=== PATIENT | female | born 1955 | race Caucasian/White ===

== ENCOUNTER 2017-05-06 12:54 | Inpatient (IN) | payer MEDICARE, BC ==
[~2017-05-06] VITALS: Ht 162.6 cm; Wt 72.6 kg
[~2017-05-06 12:54] MED LIST: ACET1TAB14 PO; AMIT10TA6 PO; ATOR40TA PO; Carisoprodol PO; DILT180C66 PO; DILT180T11 PO; HYDR25TA4 PO; HYDROCHLOROTHIAZIDE PO; LIDOCAINE 5% OINT TOP; NATE60TA PO; POTA10CA43 PO; SOMA PO; XANAX PO
[2017-05-06] MEDS ORDERED: PANTOPRAZOLE SODIUM 40 MG VIAL IV ONE (14:15)
[2017-05-06] MEDS ORDERED: ONDANSETRON IV *ER 4 MG/2 ML VIAL IV ONE (14:15)
[2017-05-06] MEDS ORDERED: IV NORMAL SALINE 500 ML IV ONE ×2 (14:15→14:45)
[2017-05-06 14:26] LABS: BASOPHILS # (AUTO) 0.2 K/uL (0.0-8.0); HEMATOCRIT 46.2 % (37-47); HEMOGLOBIN 15.2 G/DL (12.0-16.0); LYMPHOCYTES # (AUTO) 1.5 K/UL (0.8-4.8); LYMPHOCYTES % (AUTO) 9.5 % (20.5-51.5); MEAN CORPUSCULAR HEMOGLOBIN 26.5 UUG (27.0-31.0); MEAN CORPUSCULAR HGB CONC 33 g/dL (32.0-37.0); MEAN CORPUSCULAR VOLUME 80.8 FL (81.0-99.0); MONOCYTES # (AUTO) 0.2 K/UL (0.1-1.30); MONOCYTES % (AUTO) 1.3 % (0.0-11.0); NEUTROPHILS % (AUTO) 88.2 % (38.5-71.5); PLATELET COUNT (AUTO) 415 K/UL (150-450); RED BLOOD CELL COUNT(AUTO) 5.72 MIL/UL (4.2-5.4); WHITE BLOOD COUNT (AUTO) 15.9 K/UL (4.0-11.2)
[2017-05-06 14:31] LABS: CREATININE 1.1 mg/dL (0.6-1.3); POTASSIUM 3.1 mmol/L (3.5-5.1)
[2017-05-06] MEDS ORDERED: PANTOPRAZOLE SODIUM 40 MG VIAL ONE (14:32)
[2017-05-06] MEDS ORDERED: ONDANSETRON 4 MG/2 ML VIAL ONE (14:33)
[2017-05-06 14:37] LABS: BILIRUBIN,TOTAL 0.7 mg/dL (0.2-1.0); TOTAL PROTEIN, SERUM 8.7 g/dL (6.4-8.2)
[2017-05-06] MEDS ORDERED: INSULIN REGULAR, HUMAN 1,000 UNITS/10 ML VIAL IV ONE (14:45)
[2017-05-06] MEDS ORDERED: INSULIN REGULAR, HUMAN 300 UNIT/3 ML VIAL ONE ×2 (14:59→15:02)
[2017-05-06 15:00] LABS: *BLOOD, URINE 2+ (NEGATIVE); *CLARITY,URINE SLIGHTLY CLOUDY (CLEAR); *COLOR,URINE YELLOW (YELLOW); *KETONES,URINE 4+ (NEGATIVE); *PROTEIN,URINE 1+ (NEGATIVE); *UROBILINOGEN,URINE 0.2 E.U./dl (NORMAL); LEUKOCYTE ESTERASE ,URINE TRACE (NEGATIVE); NITRITE, URINE NEGATIVE (NEGATIVE)
--- NOTE | 2017-05-06 15:07 | NUR ---
Pt was not aable to keep blood glucose under control, was at her PCP office who sent her here for admission. c/o dizziness, n/v, sciatic pain bilateral (chronic). 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
[2017-05-06 15:15] LABS: *BILIRUBIN,URIN NEGATIVE (NEGATIVE); UGLUCOSE 2+ (NEGATIVE)
[2017-05-06] MEDS ORDERED: POTASSIUM CHLORIDE 20 MEQ TAB.PRT.SR PO ONE (15:15)
[2017-05-06 15:20] LABS: BACTERIA,URINE FEW /HPF (NONE SEEN); SQUAMOUS EPITHELIAL CELL,UR MODERATE /HPF (NONE SEEN); WBC,URINE 20-50 /HPF (0-3)
--- NOTE | 2017-05-06 15:39 | NUR ---
pt vomited the k-dur tabs, refused to attempt taking others. Also, does not wish to give urine sample. aware.
[2017-05-06] MEDS ORDERED: POTASSIUM CHLORIDE 20 MEQ TAB.PRT.SR ONE (15:43)
[2017-05-06] MEDS ORDERED: POTASSIUM CHLORIDE 50 ML ONE (16:19)
[2017-05-06] MEDS: POTASSIUM CHLORIDE 50 ML IV SCH ×4 (16:22→19:01)
--- NOTE | 2017-05-06 16:22 | NUR ---
Pt c/o CP -- pressure, MD notified, EKG repeated, given to
--- NOTE | 2017-05-06 16:27 | NUR ---
Called to give report, Paz states sh wcb in 5 minutes
[2017-05-06] MEDS ORDERED: POTASSIUM CHLORIDE 150 ML ONE (16:40)
[2017-05-06 17:20] VITALS: BP 163/75
--- NOTE | 2017-05-06 17:20 | NUR ---
PATIENT RECEIVED FROM THE ER 1720 REPORT RECEIVED BY ODILIA MOREL. NO S/S OF DISTRESS NOTED. C/O OF NAUSEA, EMESIS 100CC YELLOWISH BROWN. SOCIAL INSURANCE ADVISER ON PLACE SR. INFUSING K AT THE MOMENT. ALL ADMISSIONS WERE TAKEN AND CHARTED. PICTURES WERE TAKEN FROM BOTH LEGS. DR. CORDERO NOTIFIED ABOUT ADMISSION, ORDERS WERE PLACED. BS IS TRENDING DOWN. ATIVAN IV WAS GIVEN TO ANXIETY. PATIENT CANT STILL TOLERATE NOTHING BY MOUTH, WILL KEEP HER NPO FOR SAFETY. ICE CHIPS WERE PROVIDED. REPORT WAS GIVEN TO ODILIA JEONG. SAFETY AND COMFORT PROVIDED BY STAFF.
[2017-05-06] MEDS ORDERED: Z GUARD REMEDY PASTE 57 GM TUBE TOP PRN (18:00)
[2017-05-06] MEDS ORDERED: DEXTROSE 50% 50 ML DISP.SYRIN IV PRN (18:00)
[2017-05-06] MEDS ORDERED: LIDOCAINE 5% OINT 35.44 GM TUBE TOP PRN (18:00)
[2017-05-06] MEDS ORDERED: ALPRAZOLAM 0.5 MG TABLET PO PRN (18:00)
[2017-05-06] MEDS: LORAZEPAM 2 MG/1 ML VIAL IV PRN (19:02)
--- NOTE | 2017-05-06 19:30 | NUR ---
RESTING IN BED COMFORTABLY. NO COMPLAINTS OF NAUSEA AND VOMITING AT THIS TIME. ABLE TO MAKE NEEDS KNOWN. NEEDS ATTENDED. CALL LIGHT WITHIN REACH. WILL CONTINUE TO MONITOR
[2017-05-06 20:00] VITALS: BP 163/83
[2017-05-06] MEDS: ATORVASTATIN 40 MG TABLET PO SCH (20:05)
[2017-05-06] MEDS: BLOOD SUGAR DIAGNOSTIC 1 EACH STRIP VI SCH (20:05)
[2017-05-06] MEDS: INSULIN REGULAR, HUMAN 300 UNITS/3 ML VIAL SQ PRN (20:07)
[2017-05-06] MEDS: ACETAMINOPHEN/CODEINE 300-60 MG TABLET PO PRN (20:19)
[2017-05-07] VITALS: BP 141/70
[2017-05-07] MEDS ORDERED: ONDANSETRON 4 MG/2 ML VIAL IV PRN (03:45)
[2017-05-07] MEDS: ACETAMINOPHEN/CODEINE 300-60 MG TABLET PO PRN ×3 (03:53→20:35)
[2017-05-07] MEDS: ONDANSETRON 4 MG/2 ML VIAL IV PRN ×3 (03:53→19:10)
[2017-05-07 04:00] VITALS: BP 136/65
[2017-05-07] MEDS ORDERED: ONDANSETRON 4 MG/2 ML VIAL ONE (04:00)
--- NOTE | 2017-05-07 05:59 | NUR ---
SLEPT INTERMITTENTLY DURING THE SHIFT. NO ACUTE DISTRESS NOTED. ALL DUE MEDS GIVEN ORDERED. STILL WEAK BUT ABLE TO AMBULATE USING WITH CANE. NEEDS ATTENDED. CALL LIGHT WITHIN REACH
[2017-05-07] MEDS: CARISOPRODOL 350 MG TABLET PO PRN ×2 (06:49→11:59)
[2017-05-07] MEDS: BLOOD SUGAR DIAGNOSTIC 1 EACH STRIP VI SCH ×4 (06:50→20:39)
[2017-05-07 07:50] LABS: BILIRUBIN,TOTAL 0.7 mg/dL (0.2-1.0); POTASSIUM 3.8 mmol/L (3.5-5.1)
[2017-05-07 08:09] LABS: BASOPHILS % (AUTO) 0.2 % (0.0-2.0); EOSINOPHILS # (AUTO) 0.1 K/uL (0.0-0.7); EOSINOPHILS % (AUTO) 0.7 % (0.0-7.0); HEMOGLOBIN 13.1 G/DL (12.0-16.0); LYMPHOCYTES % (AUTO) 14.6 % (20.5-51.5); MEAN CORPUSCULAR HEMOGLOBIN 26.8 UUG (27.0-31.0); MEAN CORPUSCULAR HGB CONC 33 g/dL (32.0-37.0); MEAN CORPUSCULAR VOLUME 80.4 FL (81.0-99.0); MONOCYTES # (AUTO) 0.7 K/UL (0.1-1.30); MONOCYTES % (AUTO) 4.9 % (0.0-11.0); NEUTROPHILS % (AUTO) 79.6 % (38.5-71.5); PLATELET COUNT (AUTO) 350 K/UL (150-450); WHITE BLOOD COUNT (AUTO) 13.8 K/UL (4.0-11.2)
[2017-05-07 08:12] LABS: THYROID STIMULATING HORMONE 1.157 mIU/mL (0.358-3.740)
[2017-05-07 08:20] LABS: HEMATOCRIT 39.3 % (37-47); RED BLOOD CELL COUNT(AUTO) 4.89 MIL/UL (4.2-5.4)
[2017-05-07] MEDS: INSULIN REGULAR, HUMAN 300 UNIT/3 ML VIAL SQ PRN ×3 (08:31→17:03)
[2017-05-07] MEDS: NATEGLINIDE 60 MG TABLET PO SCH (08:33)
[2017-05-07] MEDS: AMITRIPTYLINE HCL 10 MG TABLET PO SCH ×2 (09:42→17:02)
[2017-05-07] MEDS: LISINOPRIL 10 MG TABLET PO SCH (09:43)
[2017-05-07] MEDS: DILTIAZEM HCL CD 180 MG CAP.SR.24H PO SCH (09:43)
[2017-05-07] MEDS: HYDROCHLOROTHIAZIDE 25 MG TABLET PO SCH (09:44)
[2017-05-07] MEDS: POTASSIUM CHLORIDE 10 MEQ CAPSULE.SA PO SCH (09:44)
[2017-05-07 11:01] VITALS: BP 139/67
[2017-05-07 15:29] VITALS: BP 122/55
[2017-05-07] MEDS: CEFTRIAXONE 1 G in IV DEXTROSE 5% 50 ML IV SCH (17:02)
[2017-05-07 20:00] VITALS: BP 131/66
--- NOTE | 2017-05-07 20:00 | NUR ---
PT RECEIVED SITTING UP IN BED, NO ACUTE DISTRESS NOTED. PT IS AOX4 PLEASANT UPON APPROACH. HEP LOCK IN RIGHT ARM, INTACT. REPORTS NAUSEA SUBSIDING. BED IN LOW AND LOCKED POSITION. CALL LIGHT WITHIN REACH.
[2017-05-07] MEDS: ATORVASTATIN 40 MG TABLET PO SCH (20:33)
[2017-05-07] MEDS: INSULIN REGULAR, HUMAN 300 UNITS/3 ML VIAL SQ PRN (20:47)
--- NOTE | 2017-05-07 21:00 | NUR ---
FINGERSTICK AT BEDTIME WAS 321MG/DL, GIVEN 8 UNITS SLIDING SCALE COVERAGE. NO S/S HYPO/HYPERGLYCEMIA NOTED. PT GIVEN TYLENOL #4 FOR ABDOMINAL PAIN. SAFETY MEASURES MAINTAINED.
[2017-05-08] MEDS: CARISOPRODOL 350 MG TABLET PO PRN ×2 (00:52→14:16)
--- NOTE | 2017-05-08 02:54 | NUR ---
PT SLEEPING INTERMITTENTLY, NO ACUTE DISTRESS NOTED. WILL CONTINUE TO MONITOR FOR SAFETY.
[2017-05-08 04:00] VITALS: BP 131/73
[2017-05-08] MEDS: BLOOD SUGAR DIAGNOSTIC 1 EACH STRIP VI SCH ×4 (06:34→21:01)
--- NOTE | 2017-05-08 06:49 | NUR ---
PT FINGERSTICK THIS AM 295, NO S/S HYPERGLYCEMIA NOTED. NO ACUTE DISTRESS NOTED. SAFETY MEASURES PROVIDED.
[2017-05-08] MEDS: NATEGLINIDE 60 MG TABLET PO SCH (07:51)
[2017-05-08] MEDS: INSULIN REGULAR, HUMAN 300 UNIT/3 ML VIAL SQ PRN ×4 (07:53→21:05)
[2017-05-08] MEDS: LORAZEPAM 2 MG/1 ML VIAL IV PRN (08:04)
[2017-05-08] MEDS: AMITRIPTYLINE HCL 10 MG TABLET PO SCH ×2 (09:27→16:58)
[2017-05-08] MEDS: DILTIAZEM HCL CD 180 MG CAP.SR.24H PO SCH (09:27)
[2017-05-08] MEDS: HYDROCHLOROTHIAZIDE 25 MG TABLET PO SCH (09:28)
[2017-05-08] MEDS: POTASSIUM CHLORIDE 10 MEQ CAPSULE.SA PO SCH (09:28)
[2017-05-08] MEDS: LISINOPRIL 10 MG TABLET PO SCH (09:28)
[2017-05-08] MEDS: ONDANSETRON 4 MG/2 ML VIAL IV PRN ×2 (09:32→18:15)
[2017-05-08 11:05] VITALS: BP 147/80
[2017-05-08 12:13] LABS: BASOPHILS # (AUTO) 0.1 K/uL (0.0-8.0); BASOPHILS % (AUTO) 0.4 % (0.0-2.0); EOSINOPHILS # (AUTO) 0.1 K/uL (0.0-0.7); EOSINOPHILS % (AUTO) 1.1 % (0.0-7.0); HEMOGLOBIN 14.6 G/DL (12.0-16.0); LYMPHOCYTES # (AUTO) 2.1 K/UL (0.8-4.8); LYMPHOCYTES % (AUTO) 16.7 % (20.5-51.5); MEAN CORPUSCULAR HEMOGLOBIN 26.9 UUG (27.0-31.0); MEAN CORPUSCULAR HGB CONC 34 g/dL (32.0-37.0); MEAN CORPUSCULAR VOLUME 80.1 FL (81.0-99.0); MONOCYTES # (AUTO) 0.7 K/UL (0.1-1.30); MONOCYTES % (AUTO) 5.3 % (0.0-11.0); NEUTROPHILS # (AUTO) 9.8 K/UL (1.8-8.9); NEUTROPHILS % (AUTO) 76.5 % (38.5-71.5); PLATELET COUNT (AUTO) 364 K/UL (150-450); WHITE BLOOD COUNT (AUTO) 12.8 K/UL (4.0-11.2)
[2017-05-08 12:20] LABS: BILIRUBIN,TOTAL 0.7 mg/dL (0.2-1.0); CREATININE 1.1 mg/dL (0.6-1.3); MAGNESIUM 1.8 mg/dL (1.8-2.4); PHOSPHOROUS 2.6 mg/dL (2.5-4.9); TOTAL PROTEIN, SERUM 7.5 g/dL (6.4-8.2)
[2017-05-08 12:24] LABS: POTASSIUM 2.5 mmol/L (3.5-5.1)
[2017-05-08 12:26] LABS: HEMATOCRIT 43.3 % (37-47); RED BLOOD CELL COUNT(AUTO) 5.41 MIL/UL (4.2-5.4)
[2017-05-08] MEDS: ACETAMINOPHEN/CODEINE 300-60 MG TABLET PO PRN (14:10)
[2017-05-08 15:59] VITALS: BP 138/86
[2017-05-08] MEDS: CEFTRIAXONE 1 G in IV DEXTROSE 5% 50 ML IV SCH (16:00)
[2017-05-08] MEDS: POTASSIUM CHLORIDE 20 MEQ TAB.PRT.SR PO SCH ×2 (16:53→20:23)
--- NOTE | 2017-05-08 19:50 | NUR ---
PT RECEIVED SITTIN UP IN BED, NO ACUTE DISTRESS NOTED. PT OBSERVED TO BE INTERMITTENTLY CONFUSED/DISORIENTED, OBSERVED WALKING OUT OF ROOM WITH BED PAD, STATING 'I'M LOOKING FOR MY SHOES", REDIRECTION PROVIDED. PT MAKES NON SENSICAL STATEMENTS AT TIMES. 1:1 SITTER ORDERED FOR PT BY . HEP LOCK IN RIGHT FOREARM INTACT. BED IN LOW AND LOCKED POSITION, CALL LIGHT WITHIN REACH.
[2017-05-08 20:00] VITALS: BP 134/70
[2017-05-08] MEDS: ATORVASTATIN 40 MG TABLET PO SCH (20:23)
--- NOTE | 2017-05-08 22:00 | NUR ---
PT COMPLIANT WITH MEDICATIONS AT BEDTIME. XANAX GIVEN PRN NEEDED FOR ANXIETY OBSERVED. FINGERSTICK AT BEDTIME 256, SLIDING SCALE COVERAGE GIVEN. NO S/S HYPOKALEMIA NOTED. NO PHYSICAL DISCOMFORT NOTED AT THIS TIME.
--- NOTE | 2017-05-09 02:00 | NUR ---
OBSERVED RESTING COMFORTABLE AT THIS TIME. 1:1 SITTER AT BEDSIDE.
[2017-05-09] MEDS: CARISOPRODOL 350 MG TABLET PO PRN ×2 (04:07→12:34)
--- NOTE | 2017-05-09 04:23 | NUR ---
PT AWAKE IN BED, GIVEN SOMA PRN REQUESTED. NO ACUTE DISTRESS NOTED. SAFETY MEASURES MAINTAINED.
[2017-05-09] MEDS: ACETAMINOPHEN/CODEINE 300-60 MG TABLET PO PRN (06:28)
[2017-05-09] MEDS: NATEGLINIDE 60 MG TABLET PO SCH (06:44)
[2017-05-09] MEDS: BLOOD SUGAR DIAGNOSTIC 1 EACH STRIP VI SCH ×2 (06:44→11:03)
[2017-05-09 07:12] LABS: BASOPHILS % (AUTO) 0.4 % (0.0-2.0); EOSINOPHILS # (AUTO) 0.1 K/uL (0.0-0.7); EOSINOPHILS % (AUTO) 0.7 % (0.0-7.0); HEMATOCRIT 43.1 % (37-47); HEMOGLOBIN 14.4 G/DL (12.0-16.0); LYMPHOCYTES # (AUTO) 2.1 K/UL (0.8-4.8); LYMPHOCYTES % (AUTO) 23.9 % (20.5-51.5); MEAN CORPUSCULAR HEMOGLOBIN 26.7 UUG (27.0-31.0); MEAN CORPUSCULAR HGB CONC 34 g/dL (32.0-37.0); MEAN CORPUSCULAR VOLUME 79.7 FL (81.0-99.0); MONOCYTES # (AUTO) 0.5 K/UL (0.1-1.30); NEUTROPHILS # (AUTO) 6.1 K/UL (1.8-8.9); PLATELET COUNT (AUTO) 332 K/UL (150-450)
[2017-05-09 07:19] LABS: WHITE BLOOD COUNT (AUTO) 8.8 K/UL (4.0-11.2)
[2017-05-09 07:26] VITALS: BP 133/87
[2017-05-09 07:26] LABS: BILIRUBIN,TOTAL 0.9 mg/dL (0.2-1.0); CREATININE 0.8 mg/dL (0.6-1.3); MAGNESIUM 1.7 mg/dL (1.8-2.4); PHOSPHOROUS 3.8 mg/dL (2.5-4.9); POTASSIUM 3.2 mmol/L (3.5-5.1)
[2017-05-09] MEDS: INSULIN REGULAR, HUMAN 300 UNIT/3 ML VIAL SQ PRN ×2 (08:49→12:13)
[2017-05-09] MEDS: POTASSIUM CHLORIDE 10 MEQ CAPSULE.SA PO SCH (08:53)
[2017-05-09] MEDS: DILTIAZEM HCL CD 180 MG CAP.SR.24H PO SCH (08:54)
[2017-05-09] MEDS: AMITRIPTYLINE HCL 10 MG TABLET PO SCH (08:55)
[2017-05-09 08:59] VITALS: BP 125/72
[2017-05-09] MEDS: LISINOPRIL 10 MG TABLET PO SCH (08:59)
[2017-05-09] MEDS: HYDROCHLOROTHIAZIDE 25 MG TABLET PO SCH (08:59)
--- NOTE | 2017-05-09 14:10 | NUR ---
DISCHARGE NOTE: PT IS READY TO BE D/C, EDUCATION WAS GIVEN TO THE PATIENT. PHARMACIST ADVISED ON MEDICATION USE. PT REFUSED THE NURSE TO TAKE THE PICTURES. IV REMOVED. PT REFUSED TO WAIT AN HOUR FOR TYLENOL#4, RETURNED IT TO THE [facility]. V/S WNL, PT LEFT VIA WHEELCHAIR/PRIVATE CAR WITH AND DAUGHTER. NO S/S OF RESPIRATORY DISTRESS NOTED, NO PAIN NOTED. BELONGINGS SIGNED, PRESCRIPTION GIVEN TO THE PT.
== END 2017-05-09 13:13 | disposition home or self-care (01) | DRG 638 ==
LOC: ER 12:54 → TELE 16:53
PROVIDERS: ADMIT Internal Medicine; ATTEND Internal Medicine
DX: E11.65 Type 2 diabetes mellitus with hyperglycemia (principal); N39.0 Urinary tract infection, site not specified; E11.40 Type 2 diabetes mellitus with diabetic neuropathy, unspecified; E78.1 Pure hyperglyceridemia; Z88.2 Allergy status to sulfonamides; Z88.8 Allergy status to other drugs, medicaments and biological substances; K21.9 Gastro-esophageal reflux disease without esophagitis; M79.1 Myalgia; G89.29 Other chronic pain; M54.40 Lumbago with sciatica, unspecified side; V89.2XXS Person injured in unspecified motor-vehicle accident, traffic, sequela; I48.91 Unspecified atrial fibrillation; G43.909 Migraine, unspecified, not intractable, without status migrainosus; E87.6 Hypokalemia; Z79.899 Other long term (current) drug therapy; I10 Essential (primary) hypertension; D75.1 Secondary polycythemia; E66.9 Obesity, unspecified; Z68.27 Body mass index [BMI] 27.0-27.9, adult
CPT/HCPCS: 36415; 70030-TC; 82746; 83690; 83735; 84100; 84443; 85025; 85610; 86592; 87086; 93005; 93307; C9113; J0696; J1815; J2060; J2405; J3480; J7040; J7050; J7060